=== PATIENT | male | born 1965 | race Two or more races ===

== ENCOUNTER 2025-01-22 05:50 | Emergency (ER) | payer MEDICAID, SELFPAY ==
[2025-01-22 05:53] VITALS: BP 187/114; PULSE 66; RESP 18; TEMP 36.9; O2SAT 97; BMI 22.4
[2025-01-22 05:58] VITALS: BP 192/123; PULSE 66; RESP 18; TEMP 37.1; O2SAT 98
[2025-01-22 05:59] VITALS: BMI 22.4
[2025-01-22 07:09] VITALS: BP 172/146; PULSE 66; RESP 19; TEMP 37.1; O2SAT 96
[2025-01-22 07:45] VITALS: BP 172/146; PULSE 69
[2025-01-22] MEDS: LOSARTAN POTASSIUM 25 MG TABLET 50 MG PO (07:45)
[2025-01-22] MEDS: ACETAMINOPHEN 325 MG TABLET 650 MG PO (07:45)
--- NOTE | 2025-01-22 07:55 | EDNOTE_ITS ---
ED Medical Clearance VERONICA General Chief complaint: Medical Clearance Stated complaint: [facility] CLEARANCE Source: patient Arrival date/time: 01/22/25 05:50 Mode of arrival: other Limitations: no limitations CHARITO ELIZABETH MD complaint: medical clearance requested CHARITO ELIZABETH Narrative: Patient is a 59-year-old male with medical history notable for hypertension is in emergency department for medical clearance prior to incarceration. Patient states that he has a history of high blood pressure did not take his blood pressure medications. Denies headache, chest pain, palpitations, abdominal pain, dysuria, hematuria, shortness of breath, headache. Patient previously used methamphetamines states that he no longer uses them. Does smoke occasional alcohol. Patient is also complaining of pain in his right axilla states he was pushing a heavy shopping cart, denies any chest pain, trauma or history of IV drug use. Related Information Home Medications ?Medication ?Instructions ?Recorded ?Confirmed aspirin 81 mg tablet,delayed 81 mg PO DAILY 04/21/21 0 10/01/22 release losartan 50 mg tablet 50 mg PO QDAY 09/30/2210/01 omeprazole 40 mg capsule,delayed 40 mg PO QDAY 3 09/30/22 release paliperidone 3 mg tablet,extended 3 mg PO QAM 09/30/22 09/30/22 release 24 hr Previous Rx's ?Medication ?Instructions ?Recorded docusate sodium 100 mg capsule 100 mg PO BID #40 caps 10/01/22 (Colace) hydrocodone 5 mg-acetaminophen 325 1 tab PO Q6H PRN pa in (scale score 10/01/22 mg tablet 7-10) #20 tabs ibuprofen 600 mg tablet 600 mg PO Q8H PRN pain (scal e 10/01/22 score 4-6) #15 tabs losartan 50 mg-hydrochlorothiazide 1 tab PO QDAY #30 t abs 08/04/23 12.5 mg tablet (Hyzaar) Allergies Allergy/AdvReac Type Severity Reaction Status Date / Time No Known Allergies Allergy Verified 10/01/22 13:13 ED Exam General Limitations: Present no limitations General appearance: Present alert Head Head exam: Present atraumatic and normocephalic Eye Eye exam: Present normal appearance and PERRL ENT ENT exam: Present normal exam and normal oropharynx Neck Neck exam: Present normal inspection Chest Chest inspection: Present normal inspection, symmetric chest wall rise and tenderness Respiratory Respiratory exam: Present normal lung sounds bilaterally Cardiovascular Cardiovascular exam: Present regular rate and normal rhythm Abdominal Exam Abdominal exam: Present soft; Absent distention or tenderness exam: Present normal inspection Extremities Exam Extremities exam: Present normal inspection Back Exam Back exam: Present normal inspection Neurological Exam Neurological exam: Present alert, oriented X3 and CN II-XII intact Psychiatric Psychiatric exam: Present normal affect and normal mood Skin Skin exam: Present warm and dry Course Quality Measures none Orders Category Date Time Status Acetaminophen Tab [Tylenol Tab] Med 01/22/25 07:38 Discontinued 650 mg PO X1 ONE Losartan [Cozaar] Med 01/22/25 07:38 Discontinued 50 mg PO X1 ONE Vital Signs Vital signs: Vital Signs Temperature 98.4 F 01/22/25 05:53 Pulse Rate 66 01/22/25 05:53 Respiratory Rate 18 01/22/25 05:53 Blood Pressure 187/114 H 01/22/25 05:53 Pulse Oximetry (%) 97 01/22/25 05:53 Oxygen Delivery Method Room Air 01/22/25 05:53 Medical Clearance MDM Narrative [facility] Narrative:: Patient is a 59-year-old male is in the Emergency Department for medical clearance prior to incarceration. Patient has a history of high blood pressure. He is asymptomatic at this time. Do not suspect ACS arrhythmia aortic dissection pulmonary embolus given patient without any chest pain, no shortness of breath no lower extremity swelling, no other symptoms of concern. Patient does have some tenderness to palpation in the right axilla states that this always precipitated after pushing a heavy shopping cart and his tenderness is reproducible with palpation no rashes. Will provide patient his dose of blood pressure medication at this time medication for symptom relief and he is medically cleared for incarceration Patient data External records reviewed:: [facility] previous records Clinical information provided by:: patient and law enforcement Social determinants that could affect healthcare access:: substance use Patient has the following chronic illnesses:: Hypertension How is presenting disease/condition affected by chronic disease/condition?: caused by Evaluation data The following diagnostics were reviewed and interpreted by me:: other (specify) Lab and/or radiology exams considered but not ordered:: None Interpretation Summary: See MDM Medications / Prescriptions Medications or Prescriptions considered but not ordered:: None Medication administrations:: Medication Administration History Discontinued Medications Acetaminophen (Acetaminophen 325 Mg Tablet) 650 mg PO X1 ONE Stop: 01/22/25 07:39 Last Admin: 01/22/25 07:45 Dose: 650 mg Documented By: ANGELA Losartan Potassium (Losartan Potassium 25 Mg Tablet) 50 mg PO X1 ONE Stop: 01/22/25 07:39 Last Admin: 01/22/25 07:45 Dose: 50 mg Documented By: ANGELA See above Consultations Consultation(s) initiated? (list below): No Diagnosis Medical Clearance Differential Diagnosis: other Most likely diagnosis given after review of the tests above:: Hypertension asymptomatic Admission Indicated Admission indicated?: not indicated Admission Request Was there a request for admission?: Yes Admission Attestation Admission request attestation: Discussed case with Hospitalist service regarding admission. Discussed patients ED course, exam findings, labs, and radiology results. The Hospitalist [agrees,declines] to accept the patient for admission. Disposition Plan Disposition Plan: Discharge Discharge Attestation Discharge Attestation: The patient and all family members were given an opportunity to ask questions and understood the discharge instructions. Discharge instructions specifically effects, indications for sooner follow up or return to the emergency department, and the expected course of current diagnosis. Patient condition: Stable Discharge Plan Plan Patient Disposition: Half-Way/Court/Law Patient condition on transfer: Stable Prescriptions/Referrals Prescriptions/Med Rec: No Action aspirin 81 mg tablet,delayed release (DR/EC) 81 mg PO DAILY Patient Comments: TAKE 1 TABLET BY MOUTH DAILY losartan 50 mg Tablet 50 mg PO QDAY omeprazole 40 mg Capsule,Delayed Release(Dr/Ec) 40 mg PO QDAY paliperidone 3 mg Tablet Extended Release 24 Hr 3 mg PO QAM docusate sodium [Colace] 100 mg capsule 100 mg PO BID Qty: 40 0RF hydrocodone-acetaminophen 5-325 mg tablet 1 tab PO Q6H MDD 4 PRN (Reason: pain (scale score 7-10)) Qty: 20 0RF ibuprofen 600 mg tablet 600 mg PO Q8H PRN (Reason: pain (scale score 4-6)) Qty: 15 0RF losartan-hydrochlorothiazide [Hyzaar] 50-12.5 mg tablet 1 tab PO QDAY Qty: 30 0RF Referrals: Venkat Noland MD [Primary Care Provider, Family Practice] - In 1 week Problem List Clinical Impression: Hypertension, Muscle strain Patient/Caregiver Discharge Instructions Education Materials: Blood Pressure Check Steps Additional Instructions: Please take your blood pressure medication as prescribed. Return to the emergency department mediately get worsening symptoms or any symptoms of concern. Please follow-up with your primary care doctor within 1 to 2 days. I am reassured by the fact that you do not have any chest pain shortness of breath headache abdominal pain or other symptoms associated with your blood pressure Print Language: Mongolian
[2025-01-22 08:34] VITALS: BP 163/109; PULSE 64; RESP 18; TEMP 36.7; O2SAT 96
[2025-01-22 08:38] VITALS: BP 163/109; PULSE 68; RESP 19; TEMP 37.1; O2SAT 98
== END 2025-01-22 08:39 ==
PROVIDERS: Emergency Provider Emergency Medicine; PCP Family Medicine
DX: S46.811A Strain of other muscles, fascia and tendons at shoulder and upper arm level, right arm, initial encounter (principal); X50.0XXA Overexertion from strenuous movement or load, initial encounter; F17.200 Nicotine dependence, unspecified, uncomplicated; I10 Essential (primary) hypertension
CPT/HCPCS: 99282; A9270